=== PATIENT | female | born 1985 | race Caucasian/White ===

== ENCOUNTER → 2023-08-02 | Emergency (ER) | payer OTHER ==
[~2023-08-02] VITALS: Ht 170.2 cm; Wt 86.2 kg
[2023-08-02 12:54] VITALS: BP_SYST 128; PULSE 75; RESP 20; TEMP 98; O2SAT 99
== END | disposition left against medical advice (07) ==
LOC: SED 12:41
DX: M54.50 Low back pain, unspecified (principal); M54.6 Pain in thoracic spine; Z53.21 Procedure and treatment not carried out due to patient leaving prior to being seen by health care provider
CPT/HCPCS: 99281